=== PATIENT | male | born 1945 | race African-American/Black ===

== ENCOUNTER 2021-08-24 18:11 | Emergency (ER) | payer OTHER ==
[~2021-08-24] VITALS: Ht 193 cm; Wt 60.8 kg
[2021-08-24 18:33] VITALS: BP 107/67
--- NOTE | 2021-08-24 19:21 | NUR ---
CALLED [facility]ALEAN[facility] ETA [phone]
--- NOTE | 2021-08-24 20:28 | NUR ---
REPORT GIVEN TO EMS AT BEDSIDE
== END 2021-08-24 20:42 ==
LOC: ER 18:13
DX: R40.0 Somnolence (principal); I10 Essential (primary) hypertension; E78.00 Pure hypercholesterolemia, unspecified

== ENCOUNTER 2023-10-30 10:50 | Inpatient (IN) | payer OTHER ==
[~2023-10-30] VITALS: Ht 167.6 cm; Wt 72.6 kg
[2023-10-30] MEDS ORDERED: IV LR 1000 ML 1,000 ML BAG IV ONE (11:30)
[2023-10-30 11:54] LABS: BASOPHILS % (AUTO) 0.2 % (0.0-2.0); EOSINOPHILS % (AUTO) 0.5 % (0.0-6.0); HEMATOCRIT 41 % (39-51); HEMOGLOBIN 13.5 g/dL (13.5-17.5); LYMPHOCYTES # (AUTO) 1.1 K/uL (0.8-4.8); LYMPHOCYTES % (AUTO) 22.5 % (20.0-44.0); MEAN CORPUSCULAR HEMOGLOBIN 30 PG (26.0-33.0); MEAN CORPUSCULAR HGB CONC 33 g/dl (31.0-36.0); MEAN CORPUSCULAR VOLUME 92 fL (80-96); MONOCYTES # (AUTO) 0.5 K/uL (0.1-1.30); MONOCYTES % (AUTO) 9.1 % (2.0-12.0); NEUTROPHILS # (AUTO) 3.5 K/uL (1.8-8.9); NEUTROPHILS % (AUTO) 67.7 % (43.0-81.0); PLATELET COUNT (AUTO) 160 K/uL (150-450); RED CELL DISTRIBUTION WIDTH 14.8 % (11.5-15.0); WHITE BLOOD COUNT (AUTO) 5.1 K/uL (4.3-11.0)
[2023-10-30 12:03] LABS: ALANINE AMINOTRANSFERASE 55 U/L (12-78); ALBUMIN 3.2 g/dL (3.4-5.0); ALKALINE PHOSPHATASE 95 U/L (46-116); ASPARTATE AMINOTRANSFERASE 149 U/L (15-37); BILIRUBIN,DIRECT 0.1 mg/dL (0.0-0.2); BILIRUBIN,TOTAL 0.6 mg/dL (0.2-1.0); CALCIUM, SERUM 9.1 mg/dL (8.5-10.1); CARBON DIOXIDE 24 mmol/L (21-32); CHLORIDE 102 mmol/L (98-107); CREATININE 1.6 mg/dL (0.6-1.3); GLUCOSE 137 mg/dL (74-106); POTASSIUM 5.2 mmol/L (3.5-5.1); SODIUM SERUM 134 mmol/L (136-145); TOTAL PROTEIN, SERUM 8.1 g/dL (6.4-8.2); UREA NITROGEN, BLOOD 31 mg/dL (7-18)
[2023-10-30 12:09] LABS: LACTIC ACID 2.6 mmol/L (0.4-2.0)
[2023-10-30] MEDS ORDERED: CEFTRIAXONE 1GM BAG (ER ONLY) 1 GM/50 ML PIGGYBACK IV ONE (12:30)
[2023-10-30] MEDS ORDERED: ASPIRIN 325 MG TABLET PO ONE (12:30)
[2023-10-30] MEDS ORDERED: CEFTRIAXONE 1GM BAG (ER ONLY) 50 ML IV ONE (12:44)
[2023-10-30] MEDS ORDERED: ASPIRIN 325 MG TABLET ONE (12:44)
[2023-10-30] MEDS ORDERED: BISA10SU11 RC (12:47)
[2023-10-30] MEDS ORDERED: AMLO5TAB4 PO (12:47)
[2023-10-30] MEDS ORDERED: CALC-168 PO (12:47)
[2023-10-30] MEDS ORDERED: ALEN70TA80 PO (12:47)
[2023-10-30] MEDS ORDERED: MULT-213 PO (12:47)
[2023-10-30] MEDS ORDERED: MAGN400O6 PO (12:47)
[2023-10-30] MEDS ORDERED: ATOR40TA PO (12:47)
[2023-10-30] MEDS ORDERED: ACET-868 PO (12:47)
[2023-10-30] MEDS ORDERED: CHOL100043 PO (12:47)
[2023-10-30] MEDS ORDERED: ASCO-340 PO (12:47)
[2023-10-30] MEDS ORDERED: ACET-2605 PO (12:47)
[2023-10-30] MEDS ORDERED: GABA-532 PO (12:47)
[2023-10-30] MEDS ORDERED: FERR325T24 PO (12:47)
[2023-10-30] MEDS ORDERED: TRAM50TA2 PO (12:47)
[2023-10-30] MEDS ORDERED: LISI-768 PO (12:47)
[2023-10-30] MEDS ORDERED: NA P133E RC (12:47)
[2023-10-30 13:00] VITALS: O2SAT 93
[2023-10-30] MEDS ORDERED: MAGNESIUM HYDROXIDE 30 ML UDC PO PRN (16:00)
[2023-10-30] MEDS ORDERED: MAG HYDROX/AL HYDROX/SIMETH 30 ML UDC PO PRN (16:00)
[2023-10-30] MEDS ORDERED: ONDANSETRON HCL/PF 4 MG/2 ML VIAL IVP PRN (16:00)
[2023-10-30] MEDS ORDERED: Z GUARD REMEDY 4 OZ OINT TP PRN (16:00)
[2023-10-30] MEDS ORDERED: ACETAMINOPHEN 325 MG TABLET PO PRN (16:00)
[2023-10-30] MEDS ORDERED: BISACODYL SUPP (10 MG) 10 MG/SUPP.RECT SUPP.RECT RC PRN (16:00)
[2023-10-30] MEDS ORDERED: NA PHOS,M-B/NA PHOS,DI-BA 1 EA ENEMA RC PRN (16:00)
[2023-10-30] MEDS ORDERED: HYDROCODONE/APAP 5/325MG TABLET PO PRN (16:00)
[2023-10-30 16:03] LABS: APPEARANCE,URINE SLIGHTLY CLOUDY (CLEAR); BILIRUBIN,URINE NEGATIVE (NEGATIVE); BLOOD, URINE NEGATIVE Ery/uL (NEGATIVE); COLOR,URINE YELLOW (YELLOW); KETONES,URINE TRACE mg/dL (NEGATIVE); LEUKOCYTE ESTERASE ,URINE 1+ (NEGATIVE); NITRITE, URINE POSITIVE (NEGATIVE); PH,URINE 7.5 (5.0-8.0); PROTEIN,URINE 1+ mg/dl (NEGATIVE); UGLUCOSE NEGATIVE (NEGATIVE)
[2023-10-30 16:49] LABS: ADD URINE CULTURE YES; BACTERIA,URINE 1+ /HPF (None Seen); RBC,URINE 0-2 /HPF (0-2)
[2023-10-30 16:50] LABS: TRIPLE PHOSPHATE CRYSTAL,UR Moderate /HPF (None Seen); URINE AMORPHOUS PHOSPHATES Moderate /HPF (None Seen)
[2023-10-30] MEDS: GABAPENTIN 100 MG CAPSULE PO SCH (17:00)
[2023-10-30] MEDS: ENOXAPARIN SODIUM 40 MG/0.4 ML DISP.SYRIN SQ SCH (20:30)
[2023-10-30] MEDS ORDERED: ENOXAPARIN SODIUM 40 MG/0.4 ML DISP.SYRIN SQ ONE (20:33)
[2023-10-30] MEDS ORDERED: GABAPENTIN 100 MG CAPSULE ONE (20:34)
[2023-10-30] MEDS: IV NS 0.9% 1,000 ML IV PRN (22:12)
[2023-10-30] MEDS: ATORVASTATIN 40 MG TABLET PO SCH (22:13)
[2023-10-31 01:21] VITALS: BP 99/72; TEMP 97.6; O2SAT 97
[2023-10-31 04:23] VITALS: BP 107/75; TEMP 97.3; O2SAT 98
[2023-10-31 06:32] LABS: BASOPHILS % (AUTO) 0.5 % (0.0-2.0); EOSINOPHILS # (AUTO) 0.1 K/uL (0.0-0.7); EOSINOPHILS % (AUTO) 2.3 % (0.0-6.0); HEMATOCRIT 36 % (39-51); HEMOGLOBIN 11.3 g/dL (13.5-17.5); LYMPHOCYTES # (AUTO) 1.8 K/uL (0.8-4.8); LYMPHOCYTES % (AUTO) 53.4 % (20.0-44.0); MEAN CORPUSCULAR HEMOGLOBIN 29 PG (26.0-33.0); MEAN CORPUSCULAR HGB CONC 31 g/dl (31.0-36.0); MEAN CORPUSCULAR VOLUME 93 fL (80-96); MONOCYTES # (AUTO) 0.4 K/uL (0.1-1.30); NEUTROPHILS # (AUTO) 1.1 K/uL (1.8-8.9); NEUTROPHILS % (AUTO) 30.8 % (43.0-81.0); PLATELET COUNT (AUTO) 117 K/uL (150-450); RED BLOOD CELL COUNT(AUTO) 3.87 MIL/uL (4.5-6.0); RED CELL DISTRIBUTION WIDTH 14.7 % (11.5-15.0); WHITE BLOOD COUNT (AUTO) 3.4 K/uL (4.3-11.0)
[2023-10-31 07:07] LABS: CALCIUM, SERUM 8.2 mg/dL (8.5-10.1); CREATININE 1.1 mg/dL (0.6-1.3); MAGNESIUM 2.5 mg/dL (1.8-2.4); PHOSPHORUS 3.2 mg/dL (2.5-4.9); POTASSIUM 3.8 mmol/L (3.5-5.1)
[2023-10-31 07:30] VITALS: BP 114/72; TEMP 98.1; O2SAT 100
[2023-10-31] MEDS: PANTOPRAZOLE 40 MG TABLET.DR PO SCH (08:19)
[2023-10-31] MEDS: GABAPENTIN 100 MG CAPSULE PO SCH ×3 (08:20→16:07)
[2023-10-31] MEDS: CALCIUM CARB 600MG /VIT D 1 EACH TABLET PO SCH (08:20)
[2023-10-31] MEDS: MULTIVIT W/MINERALS 1 TAB TABLET PO SCH (08:20)
[2023-10-31] MEDS: ASCORBIC ACID 500 MG TABLET PO SCH (08:20)
[2023-10-31] MEDS: FERROUS SULFATE (325 MG) 325 MG/TAB TABLET PO SCH (08:20)
[2023-10-31] MEDS: CHOLECALCIFEROL 1,000 UNIT TABLET (VIT D3) PO SCH (08:20)
[2023-10-31 08:28] LABS: ALBUMIN 2.6 g/dL (3.4-5.0); BILIRUBIN,TOTAL 0.3 mg/dL (0.2-1.0); CALCIUM, SERUM 8.2 mg/dL (8.5-10.1); CREATININE 1.1 mg/dL (0.6-1.3); MAGNESIUM 1.8 mg/dL (1.8-2.4); PHOSPHORUS 3.2 mg/dL (2.5-4.9); POTASSIUM 3.4 mmol/L (3.5-5.1); TOTAL PROTEIN, SERUM 6.3 g/dL (6.4-8.2)
[2023-10-31 08:43] LABS: THYROID STIMULATING HORMONE 0.731 uIU/mL (0.358-3.74)
[2023-10-31] MEDS ORDERED: POTASSIUM CHLORIDE 20 MEQ TAB.PRT.SR PO SCH (11:30)
[2023-10-31] MEDS: CEFTRIAXONE 1 G in IV D5W 50 ML IV SCH (12:05)
[2023-10-31] MEDS: IV NS 0.9% 1,000 ML IV PRN (12:05)
[2023-10-31 16:04] VITALS: BP 118/82; TEMP 97.9; O2SAT 93
[2023-10-31] MEDS: ENOXAPARIN SODIUM 40 MG/0.4 ML DISP.SYRIN SQ SCH (16:10)
[2023-10-31 19:00] VITALS: BP 128/79; TEMP 98.2; O2SAT 96
[2023-10-31] MEDS: ATORVASTATIN 40 MG TABLET PO SCH (21:38)
[2023-11-01] MEDS: IV NS 0.9% 1,000 ML IV PRN ×2 (01:28→15:13)
[2023-11-01 06:24] LABS: BASOPHILS % (AUTO) 0.6 % (0.0-2.0); EOSINOPHILS # (AUTO) 0.1 K/uL (0.0-0.7); EOSINOPHILS % (AUTO) 2.7 % (0.0-6.0); HEMATOCRIT 35 % (39-51); HEMOGLOBIN 11.6 g/dL (13.5-17.5); LYMPHOCYTES # (AUTO) 1.6 K/uL (0.8-4.8); LYMPHOCYTES % (AUTO) 40.8 % (20.0-44.0); MEAN CORPUSCULAR HEMOGLOBIN 30 PG (26.0-33.0); MEAN CORPUSCULAR HGB CONC 33 g/dl (31.0-36.0); MEAN CORPUSCULAR VOLUME 90 fL (80-96); MONOCYTES # (AUTO) 0.4 K/uL (0.1-1.30); MONOCYTES % (AUTO) 10.7 % (2.0-12.0); NEUTROPHILS # (AUTO) 1.8 K/uL (1.8-8.9); NEUTROPHILS % (AUTO) 45.2 % (43.0-81.0); PLATELET COUNT (AUTO) 144 K/uL (150-450); RED BLOOD CELL COUNT(AUTO) 3.92 MIL/uL (4.5-6.0); RED CELL DISTRIBUTION WIDTH 14.3 % (11.5-15.0); WHITE BLOOD COUNT (AUTO) 3.9 K/uL (4.3-11.0)
[2023-11-01 07:24] LABS: ALBUMIN 2.7 g/dL (3.4-5.0); BILIRUBIN,TOTAL 0.3 mg/dL (0.2-1.0); CALCIUM, SERUM 8.4 mg/dL (8.5-10.1); CREATININE 0.9 mg/dL (0.6-1.3); MAGNESIUM 1.8 mg/dL (1.8-2.4); POTASSIUM 3.5 mmol/L (3.5-5.1); TOTAL PROTEIN, SERUM 6.5 g/dL (6.4-8.2)
[2023-11-01 08:30] VITALS: BP 142/91; TEMP 98.4; O2SAT 96
[2023-11-01] MEDS: CALCIUM CARB 600MG /VIT D 1 EACH TABLET PO SCH (08:51)
[2023-11-01] MEDS: FERROUS SULFATE (325 MG) 325 MG/TAB TABLET PO SCH (08:51)
[2023-11-01] MEDS: ASCORBIC ACID 500 MG TABLET PO SCH (08:52)
[2023-11-01] MEDS: CHOLECALCIFEROL 1,000 UNIT TABLET (VIT D3) PO SCH (08:52)
[2023-11-01] MEDS: PANTOPRAZOLE 40 MG TABLET.DR PO SCH (08:52)
[2023-11-01] MEDS: GABAPENTIN 100 MG CAPSULE PO SCH ×3 (08:52→16:48)
[2023-11-01] MEDS: MULTIVIT W/MINERALS 1 TAB TABLET PO SCH (08:53)
[2023-11-01] MEDS: CEFTRIAXONE 1 G in IV D5W 50 ML IV SCH (12:00)
[2023-11-01 13:00] VITALS: BP 137/98; TEMP 98.6; O2SAT 98
[2023-11-01 16:00] VITALS: BP 115/73; TEMP 98.2; O2SAT 98
[2023-11-01] MEDS: ENOXAPARIN SODIUM 40 MG/0.4 ML DISP.SYRIN SQ SCH (16:50)
[2023-11-01 20:00] VITALS: BP 147/98; TEMP 98.1; O2SAT 97
[2023-11-01] MEDS: ATORVASTATIN 40 MG TABLET PO SCH (22:38)
[2023-11-02 08:00] VITALS: BP 138/89; TEMP 97.9; O2SAT 97
[2023-11-02] MEDS: CALCIUM CARB 600MG /VIT D 1 EACH TABLET PO SCH (08:44)
[2023-11-02] MEDS: MULTIVIT W/MINERALS 1 TAB TABLET PO SCH (08:44)
[2023-11-02] MEDS: FERROUS SULFATE (325 MG) 325 MG/TAB TABLET PO SCH (08:44)
[2023-11-02] MEDS: CHOLECALCIFEROL 1,000 UNIT TABLET (VIT D3) PO SCH (08:44)
[2023-11-02] MEDS: GABAPENTIN 100 MG CAPSULE PO SCH ×3 (08:44→17:12)
[2023-11-02] MEDS: ASCORBIC ACID 500 MG TABLET PO SCH (08:44)
[2023-11-02] MEDS: PANTOPRAZOLE 40 MG TABLET.DR PO SCH (08:46)
[2023-11-02] MEDS: METOPROLOL TARTRATE 50 MG TABLET PO SCH ×2 (10:02→21:23)
[2023-11-02] MEDS: ASPIRIN 81 MG TAB.CHEW PO SCH (10:02)
[2023-11-02] MEDS: CEFTRIAXONE 1 G in IV D5W 50 ML IV SCH (11:39)
[2023-11-02] MEDS: ENOXAPARIN SODIUM 40 MG/0.4 ML DISP.SYRIN SQ SCH (15:41)
[2023-11-02 16:00] VITALS: BP 130/83; TEMP 97.3; O2SAT 97
[2023-11-02] MEDS: IV NS 0.9% 1,000 ML IV PRN (17:12)
[2023-11-02 20:00] VITALS: BP 131/82; TEMP 98.5; O2SAT 97
[2023-11-02] MEDS: ATORVASTATIN 40 MG TABLET PO SCH (21:22)
[2023-11-03] MEDS: IV NS 0.9% 1,000 ML IV PRN ×2 (06:34→23:50)
[2023-11-03 07:00] VITALS: BP 140/91; TEMP 98.5; O2SAT 96
[2023-11-03 07:37] LABS: BASOPHILS % (AUTO) 0.6 % (0.0-2.0); EOSINOPHILS # (AUTO) 0.2 K/uL (0.0-0.7); HEMATOCRIT 37 % (39-51); HEMOGLOBIN 12.5 g/dL (13.5-17.5); LYMPHOCYTES % (AUTO) 41.5 % (20.0-44.0); MEAN CORPUSCULAR HEMOGLOBIN 30 PG (26.0-33.0); MEAN CORPUSCULAR HGB CONC 34 g/dl (31.0-36.0); MEAN CORPUSCULAR VOLUME 89 fL (80-96); MONOCYTES # (AUTO) 0.5 K/uL (0.1-1.30); MONOCYTES % (AUTO) 10.6 % (2.0-12.0); NEUTROPHILS % (AUTO) 42.3 % (43.0-81.0); PLATELET COUNT (AUTO) 159 K/uL (150-450); RED BLOOD CELL COUNT(AUTO) 4.18 MIL/uL (4.5-6.0); RED CELL DISTRIBUTION WIDTH 14.2 % (11.5-15.0); WHITE BLOOD COUNT (AUTO) 4.7 K/uL (4.3-11.0)
[2023-11-03 07:50] LABS: ALBUMIN 2.6 g/dL (3.4-5.0); BILIRUBIN,TOTAL 0.3 mg/dL (0.2-1.0); CALCIUM, SERUM 8.7 mg/dL (8.5-10.1); CREATININE 0.9 mg/dL (0.6-1.3); MAGNESIUM 2.1 mg/dL (1.8-2.4); PHOSPHORUS 3.5 mg/dL (2.5-4.9); POTASSIUM 3.9 mmol/L (3.5-5.1); TOTAL PROTEIN, SERUM 6.8 g/dL (6.4-8.2)
[2023-11-03] MEDS: MULTIVIT W/MINERALS 1 TAB TABLET PO SCH (09:00)
[2023-11-03] MEDS: ASPIRIN 81 MG TAB.CHEW PO SCH (11:25)
[2023-11-03] MEDS: CALCIUM CARB 600MG /VIT D 1 EACH TABLET PO SCH (11:26)
[2023-11-03] MEDS: PANTOPRAZOLE 40 MG TABLET.DR PO SCH (11:26)
[2023-11-03] MEDS: CHOLECALCIFEROL 1,000 UNIT TABLET (VIT D3) PO SCH (11:26)
[2023-11-03] MEDS: GABAPENTIN 100 MG CAPSULE PO SCH ×3 (11:26→17:50)
[2023-11-03] MEDS: FERROUS SULFATE (325 MG) 325 MG/TAB TABLET PO SCH (11:27)
[2023-11-03] MEDS: ASCORBIC ACID 500 MG TABLET PO SCH (11:27)
[2023-11-03] MEDS: METOPROLOL TARTRATE 50 MG TABLET PO SCH ×2 (11:27→21:11)
[2023-11-03] MEDS: CEFTRIAXONE 1 G in IV D5W 50 ML IV SCH (12:48)
[2023-11-03 16:00] VITALS: BP 147/69; TEMP 98.4; O2SAT 96
[2023-11-03] MEDS: ENOXAPARIN SODIUM 40 MG/0.4 ML DISP.SYRIN SQ SCH (16:41)
[2023-11-03 20:00] VITALS: BP 90/55; TEMP 98.9; O2SAT 96
[2023-11-03] MEDS: ATORVASTATIN 40 MG TABLET PO SCH (21:11)
[2023-11-04 06:34] LABS: BASOPHILS % (AUTO) 0.4 % (0.0-2.0); EOSINOPHILS # (AUTO) 0.2 K/uL (0.0-0.7); EOSINOPHILS % (AUTO) 4.2 % (0.0-6.0); HEMATOCRIT 36 % (39-51); HEMOGLOBIN 11.7 g/dL (13.5-17.5); LYMPHOCYTES # (AUTO) 2.1 K/uL (0.8-4.8); LYMPHOCYTES % (AUTO) 37.8 % (20.0-44.0); MEAN CORPUSCULAR HEMOGLOBIN 29 PG (26.0-33.0); MEAN CORPUSCULAR HGB CONC 33 g/dl (31.0-36.0); MEAN CORPUSCULAR VOLUME 89 fL (80-96); MONOCYTES # (AUTO) 0.6 K/uL (0.1-1.30); MONOCYTES % (AUTO) 10.6 % (2.0-12.0); NEUTROPHILS # (AUTO) 2.6 K/uL (1.8-8.9); PLATELET COUNT (AUTO) 180 K/uL (150-450); RED BLOOD CELL COUNT(AUTO) 4.01 MIL/uL (4.5-6.0); RED CELL DISTRIBUTION WIDTH 13.8 % (11.5-15.0); WHITE BLOOD COUNT (AUTO) 5.6 K/uL (4.3-11.0)
[2023-11-04 06:55] LABS: ALBUMIN 2.5 g/dL (3.4-5.0); BILIRUBIN,TOTAL 0.4 mg/dL (0.2-1.0); CALCIUM, SERUM 8.5 mg/dL (8.5-10.1); MAGNESIUM 1.9 mg/dL (1.8-2.4); POTASSIUM 3.8 mmol/L (3.5-5.1); TOTAL PROTEIN, SERUM 6.4 g/dL (6.4-8.2)
[2023-11-04 08:00] VITALS: BP 145/92; TEMP 98.2; O2SAT 97
[2023-11-04] MEDS: ASCORBIC ACID 500 MG TABLET PO SCH (09:52)
[2023-11-04] MEDS: GABAPENTIN 100 MG CAPSULE PO SCH ×3 (09:52→16:12)
[2023-11-04] MEDS: FERROUS SULFATE (325 MG) 325 MG/TAB TABLET PO SCH (09:52)
[2023-11-04] MEDS: CHOLECALCIFEROL 1,000 UNIT TABLET (VIT D3) PO SCH (09:52)
[2023-11-04] MEDS: ASPIRIN 81 MG TAB.CHEW PO SCH (09:52)
[2023-11-04] MEDS: CALCIUM CARB 600MG /VIT D 1 EACH TABLET PO SCH (09:52)
[2023-11-04] MEDS: METOPROLOL TARTRATE 50 MG TABLET PO SCH (09:54)
[2023-11-04] MEDS: PANTOPRAZOLE 40 MG TABLET.DR PO SCH (09:57)
[2023-11-04] MEDS: MULTIVIT W/MINERALS 1 TAB TABLET PO SCH (13:41)
[2023-11-04] MEDS: CEFTRIAXONE 1 G in IV D5W 50 ML IV SCH (13:47)
[2023-11-04 16:00] VITALS: BP 119/83; TEMP 98.2; O2SAT 100
[2023-11-04] MEDS: ENOXAPARIN SODIUM 40 MG/0.4 ML DISP.SYRIN SQ SCH (16:10)
== END 2023-11-04 17:20 | DRG 871 ==
LOC: ER 11:14 → TRANSITION 17:42 → TELE 20:33 → MED 11-01 17:04
PROVIDERS: ATTEND Nurse Practitioner Acute Care
DX: A41.9 Sepsis, unspecified organism (principal); I21.A1 Myocardial infarction type 2; N17.0 Acute kidney failure with tubular necrosis; N39.0 Urinary tract infection, site not specified; D61.818 Other pancytopenia; M81.0 Age-related osteoporosis without current pathological fracture; Z20.822 Contact with and (suspected) exposure to COVID-19; E78.00 Pure hypercholesterolemia, unspecified; I10 Essential (primary) hypertension; Z79.83 Long term (current) use of bisphosphonates; Z79.899 Other long term (current) drug therapy; K59.00 Constipation, unspecified; M89.8X9 Other specified disorders of bone, unspecified site; F03.90 Unspecified dementia, unspecified severity, without behavioral disturbance, psychotic disturbance, mood disturbance, and anxiety; E86.9 Volume depletion, unspecified; E87.6 Hypokalemia; D64.9 Anemia, unspecified
CPT/HCPCS: 36415; 71045-TC; 80048-TC; 80053-TC; 80061-TC; 80076-TC; 81001; 82728-TC; 83540-TC; 83605-TC; 83735-TC; 84100-TC; 84300-TC; 84439-TC; 84443-TC; 84484-TC; 85025-TC; 87040-TC; 87081-TC; 87086-TC; 92526; 92611-TC; 93307-TC; 97110-TC; 97112-TC; 97530-TC; A4223; C9803; G0378; J0696; J1650; J7030; J7060; J7120

== ENCOUNTER 2023-12-05 18:16 | Inpatient (IN) | payer OTHER ==
[~2023-12-05] VITALS: Ht 172.7 cm; Wt 76.2 kg
[~2023-12-05 18:16] MED LIST: ACET-2605 PO; ACET-868 PO; ALEN70TA80 PO; AMLO5TAB4 PO; ASCO-340 PO; ATOR40TA PO; BISA10SU11 RC; CALC-168 PO; CHOL100043 PO; FERR325T24 PO; GABA-532 PO; LISI-768 PO; MAGN400O6 PO; MULT-213 PO; NA P133E RC; TRAM50TA2 PO
[2023-12-05] MEDS ORDERED: CEFT1VIA14 IV (19:00)
[2023-12-05] MEDS ORDERED: CALC1TAB30 PO (19:00)
[2023-12-05] MEDS ORDERED: AMIN30LI2 PO (19:00)
[2023-12-05] MEDS ORDERED: ASPI-1169 PO (19:00)
[2023-12-05] MEDS ORDERED: LIDO120C10 TP (19:00)
[2023-12-05 19:09] LABS: BASOPHILS % (AUTO) 0.2 % (0.0-2.0); EOSINOPHILS % (AUTO) 0.1 % (0.0-6.0); HEMATOCRIT 32 % (39-51); HEMOGLOBIN 10.6 g/dL (13.5-17.5); LYMPHOCYTES # (AUTO) 0.5 K/uL (0.8-4.8); LYMPHOCYTES % (AUTO) 3.6 % (20.0-44.0); MEAN CORPUSCULAR HEMOGLOBIN 30 PG (26.0-33.0); MEAN CORPUSCULAR HGB CONC 33 g/dl (31.0-36.0); MEAN CORPUSCULAR VOLUME 90 fL (80-96); MONOCYTES # (AUTO) 0.8 K/uL (0.1-1.30); MONOCYTES % (AUTO) 5.5 % (2.0-12.0); NEUTROPHILS % (AUTO) 90.6 % (43.0-81.0); PLATELET COUNT (AUTO) 233 K/uL (150-450); RED CELL DISTRIBUTION WIDTH 14.9 % (11.5-15.0); WHITE BLOOD COUNT (AUTO) 14.4 K/uL (4.3-11.0)
[2023-12-05] MEDS ORDERED: VANCOMYCIN 1 GM in IV D5W 250 ML IV ONE (20:00)
[2023-12-05] MEDS ORDERED: PIPERACILLIN /TAZOBACTAM 3.375 G in IV D5W 50 ML IV ONE (20:00)
[2023-12-05] MEDS ORDERED: AZITHROMYCIN 500 MG in IV D5W 250 ML IV ONE (20:00)
[2023-12-05 20:01] LABS: CALCIUM, SERUM 8.5 mg/dL (8.5-10.1); CARBON DIOXIDE 22 mmol/L (21-32); CHLORIDE 105 mmol/L (98-107); CREATININE 1.4 mg/dL (0.6-1.3); GLUCOSE 124 mg/dL (74-106); POTASSIUM 3.6 mmol/L (3.5-5.1); SODIUM SERUM 140 mmol/L (136-145); UREA NITROGEN, BLOOD 18 mg/dL (7-18)
[2023-12-05] MEDS ORDERED: PIPERACI/TAZO 3.375GM/D5W 50ML PB IV ONE (20:17)
[2023-12-05 20:25] LABS: ALANINE AMINOTRANSFERASE 23 U/L (12-78); ALBUMIN 2.8 g/dL (3.4-5.0); ALKALINE PHOSPHATASE 94 U/L (46-116); ASPARTATE AMINOTRANSFERASE 29 U/L (15-37); BILIRUBIN,DIRECT 0.6 mg/dL (0.0-0.2); NT-PRO BNP 1528 pg/mL (0-125); TOTAL PROTEIN, SERUM 7.7 g/dL (6.4-8.2)
[2023-12-05] MEDS ORDERED: ASPIRIN 325 MG TABLET PO ONE (21:30)
[2023-12-05] MEDS ORDERED: ZOLPIDEM TARTRATE 5 MG TABLET PO PRN (22:30)
[2023-12-05] MEDS ORDERED: ONDANSETRON HCL/PF 4 MG/2 ML VIAL IVP PRN (22:30)
[2023-12-05] MEDS ORDERED: ALENDRONATE 70 MG TABLET PO SCH (22:30)
[2023-12-05] MEDS ORDERED: MAG HYDROX/AL HYDROX/SIMETH 30 ML UDC PO PRN (22:30)
[2023-12-05] MEDS ORDERED: MAGNESIUM HYDROXIDE 30 ML UDC PO PRN (22:30)
[2023-12-05] MEDS ORDERED: Z GUARD REMEDY 4 OZ OINT TP PRN (22:30)
[2023-12-05] MEDS ORDERED: ACETAMINOPHEN 325 MG TABLET PO PRN (22:30)
[2023-12-05 23:25] VITALS: BP 93/72; TEMP 98.1; O2SAT 96
[2023-12-05 23:40] VITALS: BP 93/72; TEMP 98.1; O2SAT 96
[2023-12-05] MEDS: IV NS 0.9% 1,000 ML IV PRN (23:48)
[2023-12-06] MEDS ORDERED: PIPERACILLIN /TAZOBACTAM 3.375 G in IV D5W 50 ML IV SCH ×2
[2023-12-06] MEDS ORDERED: PIPERACI/TAZO 3.375GM/D5W 50ML PB IV ONE ×2 (00:22→03:36)
[2023-12-06] MEDS: PIPERACILLIN /TAZOBACTAM 3.375 G in IV D5W 50 ML IV SCH ×2 (00:27→06:46)
[2023-12-06 04:00] VITALS: BP 111/77; TEMP 97.3; O2SAT 98
[2023-12-06 08:00] VITALS: BP 152/76; TEMP 97.9; O2SAT 96
[2023-12-06] MEDS: MULTIVIT W/MINERALS 1 TAB TABLET PO SCH (09:22)
[2023-12-06] MEDS: CALCIUM CARB 250MG /VITAMIN D 1 UDTAB PO SCH (09:22)
[2023-12-06] MEDS: ASCORBIC ACID 500 MG TABLET PO SCH (09:22)
[2023-12-06] MEDS: LISINOPRIL (5MG) 5 MG TABLET PO SCH (09:23)
[2023-12-06] MEDS: GABAPENTIN 100 MG CAPSULE PO SCH ×3 (09:23→16:16)
[2023-12-06] MEDS: AMLODIPINE BESYLATE 5 MG TABLET PO SCH (09:23)
[2023-12-06] MEDS: ASPIRIN 81 MG TAB.CHEW PO SCH (09:23)
[2023-12-06] MEDS: CHOLECALCIFEROL 1,000 UNIT TABLET (VIT D3) PO SCH (09:26)
[2023-12-06] MEDS: FERROUS SULFATE (325 MG) 325 MG/TAB TABLET PO SCH (09:26)
[2023-12-06] MEDS: PROSOURCE / PROSTAT (PYXIS) 30 ML UDC PO SCH ×2 (09:27→16:16)
[2023-12-06 12:00] VITALS: BP 127/94; TEMP 97.6; O2SAT 97
[2023-12-06] MEDS: PIPERACILLIN /TAZOBACTAM 3.375 G in IV D5W 100 ML IV SCH ×2 (13:35→22:22)
[2023-12-06 16:00] VITALS: BP 115/76; TEMP 98.8; O2SAT 97
[2023-12-06] MEDS: IV NS 0.9% 1,000 ML IV PRN (18:00)
[2023-12-06 20:00] VITALS: BP 122/79; TEMP 97.7; O2SAT 97
[2023-12-06] MEDS: VANCOMYCIN 1 GM in IV D5W 250 ML IV SCH (21:45)
[2023-12-06] MEDS: ATORVASTATIN 40 MG TABLET PO SCH (22:26)
[2023-12-07] VITALS: BP 127/89; TEMP 97.8; O2SAT 97
[2023-12-07 04:00] VITALS: BP 129/84; TEMP 97.9; O2SAT 94
[2023-12-07 05:00] VITALS: BP 129/84; TEMP 97.9; O2SAT 97
[2023-12-07] MEDS: PIPERACILLIN /TAZOBACTAM 3.375 G in IV D5W 100 ML IV SCH ×3 (05:03→21:49)
[2023-12-07 08:17] VITALS: BP 135/87; TEMP 98.2; O2SAT 97
[2023-12-07] MEDS: ASPIRIN 81 MG TAB.CHEW PO SCH (08:24)
[2023-12-07] MEDS: CHOLECALCIFEROL 1,000 UNIT TABLET (VIT D3) PO SCH (08:24)
[2023-12-07] MEDS: AMLODIPINE BESYLATE 5 MG TABLET PO SCH (08:25)
[2023-12-07] MEDS: LISINOPRIL (5MG) 5 MG TABLET PO SCH (08:25)
[2023-12-07] MEDS: MULTIVIT W/MINERALS 1 TAB TABLET PO SCH (08:25)
[2023-12-07] MEDS: GABAPENTIN 100 MG CAPSULE PO SCH ×3 (08:25→16:44)
[2023-12-07] MEDS: FERROUS SULFATE (325 MG) 325 MG/TAB TABLET PO SCH (08:25)
[2023-12-07] MEDS: ASCORBIC ACID 500 MG TABLET PO SCH (08:25)
[2023-12-07] MEDS: CALCIUM CARB 250MG /VITAMIN D 1 UDTAB PO SCH (08:25)
[2023-12-07] MEDS: PROSOURCE / PROSTAT (PYXIS) 30 ML UDC PO SCH ×2 (08:26→16:42)
[2023-12-07 16:36] VITALS: BP 108/74; TEMP 97.5; O2SAT 98
[2023-12-07 20:00] VITALS: BP 133/85; TEMP 98.1; O2SAT 98
[2023-12-07] MEDS: VANCOMYCIN 1 GM in IV D5W 250 ML IV SCH (20:16)
[2023-12-07] MEDS: ATORVASTATIN 40 MG TABLET PO SCH (21:11)
[2023-12-07] MEDS: IV NS 0.9% 1,000 ML IV PRN (21:48)
[2023-12-08] VITALS: BP 123/81; TEMP 99; O2SAT 97
[2023-12-08 04:00] VITALS: BP 118/76; TEMP 97.4; O2SAT 97
[2023-12-08 05:00] VITALS: BP 118/76; TEMP 97.4; O2SAT 97
[2023-12-08] MEDS: PIPERACILLIN /TAZOBACTAM 3.375 G in IV D5W 100 ML IV SCH ×2 (05:10→14:06)
[2023-12-08 06:58] LABS: BASOPHILS % (AUTO) 0.5 % (0.0-2.0); EOSINOPHILS # (AUTO) 0.2 K/uL (0.0-0.7); EOSINOPHILS % (AUTO) 3.6 % (0.0-6.0); HEMATOCRIT 29 % (39-51); HEMOGLOBIN 9.8 g/dL (13.5-17.5); LYMPHOCYTES # (AUTO) 1.3 K/uL (0.8-4.8); MEAN CORPUSCULAR HEMOGLOBIN 30 PG (26.0-33.0); MEAN CORPUSCULAR HGB CONC 33 g/dl (31.0-36.0); MEAN CORPUSCULAR VOLUME 89 fL (80-96); MONOCYTES # (AUTO) 0.8 K/uL (0.1-1.30); MONOCYTES % (AUTO) 12.7 % (2.0-12.0); NEUTROPHILS # (AUTO) 4.1 K/uL (1.8-8.9); NEUTROPHILS % (AUTO) 63.2 % (43.0-81.0); PLATELET COUNT (AUTO) 235 K/uL (150-450); RED BLOOD CELL COUNT(AUTO) 3.31 MIL/uL (4.5-6.0); RED CELL DISTRIBUTION WIDTH 14.8 % (11.5-15.0); WHITE BLOOD COUNT (AUTO) 6.4 K/uL (4.3-11.0)
[2023-12-08 07:30] VITALS: BP 128/83; TEMP 97.7; O2SAT 98
[2023-12-08 07:42] LABS: CALCIUM, SERUM 8.2 mg/dL (8.5-10.1); CARBON DIOXIDE 24 mmol/L (21-32); CHLORIDE 108 mmol/L (98-107); CREATININE 1.4 mg/dL (0.6-1.3); GLUCOSE 123 mg/dL (74-106); PHOSPHORUS 2.5 mg/dL (2.5-4.9); POTASSIUM 3.2 mmol/L (3.5-5.1); SODIUM SERUM 139 mmol/L (136-145); UREA NITROGEN, BLOOD 13 mg/dL (7-18)
[2023-12-08] MEDS: LISINOPRIL (5MG) 5 MG TABLET PO SCH (09:00)
[2023-12-08] MEDS: ASPIRIN 81 MG TAB.CHEW PO SCH (09:04)
[2023-12-08] MEDS: CALCIUM CARB 250MG /VITAMIN D 1 UDTAB PO SCH (09:04)
[2023-12-08] MEDS: MULTIVIT W/MINERALS 1 TAB TABLET PO SCH (09:05)
[2023-12-08] MEDS: CHOLECALCIFEROL 1,000 UNIT TABLET (VIT D3) PO SCH (09:05)
[2023-12-08] MEDS: ASCORBIC ACID 500 MG TABLET PO SCH (09:05)
[2023-12-08] MEDS: FERROUS SULFATE (325 MG) 325 MG/TAB TABLET PO SCH (09:05)
[2023-12-08] MEDS: GABAPENTIN 100 MG CAPSULE PO SCH ×3 (09:05→17:27)
[2023-12-08] MEDS: PROSOURCE / PROSTAT (PYXIS) 30 ML UDC PO SCH ×2 (09:06→17:27)
[2023-12-08] MEDS: AMLODIPINE BESYLATE 5 MG TABLET PO SCH (09:06)
[2023-12-08 09:35] LABS: APPEARANCE,URINE CLEAR (CLEAR); BILIRUBIN,URINE NEGATIVE (NEGATIVE); BLOOD, URINE NEGATIVE Ery/uL (NEGATIVE); COLOR,URINE YELLOW (YELLOW); KETONES,URINE NEGATIVE (NEGATIVE); LEUKOCYTE ESTERASE ,URINE NEGATIVE (NEGATIVE); NITRITE, URINE NEGATIVE (NEGATIVE); PROTEIN,URINE TRACE mg/dl (NEGATIVE); UGLUCOSE NEGATIVE (NEGATIVE)
[2023-12-08] MEDS: POTASSIUM CHLORIDE 20 MEQ TAB.PRT.SR PO SCH ×2 (09:55→11:45)
[2023-12-08 10:01] LABS: ADD URINE CULTURE YES; BACTERIA,URINE Few /HPF (None Seen); SQUAMOUS EPITHELIAL CELL,UR Few /HPF (None Seen)
[2023-12-08 16:00] VITALS: BP 128/83; TEMP 98.4; O2SAT 98
[2023-12-08] MEDS ORDERED: ALEN70TA3 PO (16:54)
[2023-12-08] MEDS ORDERED: AMOX-427 PO (16:54)
[2023-12-12] MEDS ORDERED: ALENDRONATE 70 MG TABLET PO SCH (06:00)
== END 2023-12-08 20:00 | DRG 682 ==
LOC: ER 18:40 → TELE 23:05
PROVIDERS: ADMIT Nurse Practitioner Acute Care; ATTEND Student in an Organized Health Care Education/Training Program
DX: N17.0 Acute kidney failure with tubular necrosis (principal); G93.41 Metabolic encephalopathy; I21.A1 Myocardial infarction type 2; J96.01 Acute respiratory failure with hypoxia; N39.0 Urinary tract infection, site not specified; E44.0 Moderate protein-calorie malnutrition; Z20.822 Contact with and (suspected) exposure to COVID-19; I10 Essential (primary) hypertension; E78.5 Hyperlipidemia, unspecified; K59.00 Constipation, unspecified; F43.10 Post-traumatic stress disorder, unspecified; Z79.82 Long term (current) use of aspirin; Z79.83 Long term (current) use of bisphosphonates; Z79.899 Other long term (current) drug therapy; Z86.19 Personal history of other infectious and parasitic diseases; F03.90 Unspecified dementia, unspecified severity, without behavioral disturbance, psychotic disturbance, mood disturbance, and anxiety; F29 Unspecified psychosis not due to a substance or known physiological condition; M81.0 Age-related osteoporosis without current pathological fracture; B96.89 Other specified bacterial agents as the cause of diseases classified elsewhere; D63.8 Anemia in other chronic diseases classified elsewhere; E88.09 Other disorders of plasma-protein metabolism, not elsewhere classified
CPT/HCPCS: 36415; 71045-TC; 76770-TC; 80048-TC; 80076-TC; 81001; 83735-TC; 83880; 84100-TC; 84484-TC; 85025-TC; 87081-TC; 87086-TC; 93970-TC; A4223; A4349; G0378; J0456; J2543; J3370; J7030; J7060

== ENCOUNTER 2024-05-12 21:11 | Inpatient (IN) | payer OTHER ==
[~2024-05-12] VITALS: Ht 177.8 cm; Wt 67.1 kg
[~2024-05-12 21:11] MED LIST changes: +ALEN70TA3 PO; +AMIN30LI2 PO; +AMOX-427 PO; +ASPI-1169 PO; -CALC-168 PO; +CALC1TAB30 PO; +LIDO120C10 TP; -LISI-768 PO
[2024-05-12] MEDS: IV NS 0.9% 1,000 ML BAG IV ONE ×2 (22:23→23:00)
[2024-05-12] MEDS ORDERED: ACETAMINOPHEN 650 MG/SUPP.RECT RC ONE (22:24)
[2024-05-12 22:25] LABS: BASOPHILS % (AUTO) 0.3 % (0.0-2.0); EOSINOPHILS % (AUTO) 0.2 % (0.0-6.0); HEMATOCRIT 32 % (39-51); HEMOGLOBIN 9.5 g/dL (13.5-17.5); LYMPHOCYTES # (AUTO) 0.1 K/uL (0.8-4.8); LYMPHOCYTES % (AUTO) 1.8 % (20.0-44.0); MEAN CORPUSCULAR HEMOGLOBIN 25 PG (26.0-33.0); MEAN CORPUSCULAR HGB CONC 30 g/dl (31.0-36.0); MEAN CORPUSCULAR VOLUME 83 fL (80-96); MONOCYTES % (AUTO) 0.5 % (2.0-12.0); NEUTROPHILS # (AUTO) 6.7 K/uL (1.8-8.9); NEUTROPHILS % (AUTO) 97.2 % (43.0-81.0); PLATELET COUNT (AUTO) 205 K/uL (150-450); RED BLOOD CELL COUNT(AUTO) 3.79 MIL/uL (4.5-6.0); RED CELL DISTRIBUTION WIDTH 21.6 % (11.5-15.0); WHITE BLOOD COUNT (AUTO) 6.9 K/uL (4.3-11.0)
[2024-05-12] MEDS: ACETAMINOPHEN 650 MG/SUPP.RECT RC ONE (22:29)
[2024-05-12 22:38] LABS: INR 1.18 (0.91-1.10); PARTIAL THROMBOPLASTIN TIME 27.6 SEC (24.3-34.3); PROTHROMBIN TIME 12.4 SECS (9.2-11.1)
[2024-05-12 22:40] LABS: CARBON DIOXIDE 23 mmol/L (21-32); CHLORIDE 108 mmol/L (98-107); CREATININE 1.6 mg/dL (0.6-1.3); GLUCOSE 106 mg/dL (74-106); POTASSIUM 3.8 mmol/L (3.5-5.1); SODIUM SERUM 145 mmol/L (136-145); UREA NITROGEN, BLOOD 20 mg/dL (7-18)
[2024-05-12 22:45] LABS: LACTIC ACID 3.8 mmol/L (0.4-2.0)
[2024-05-12 22:47] LABS: ALANINE AMINOTRANSFERASE 18 U/L (12-78); ALBUMIN 3.1 g/dL (3.4-5.0); ALKALINE PHOSPHATASE 132 U/L (46-116); ASPARTATE AMINOTRANSFERASE 34 U/L (15-37); BILIRUBIN,DIRECT 0.3 mg/dL (0.0-0.2); BILIRUBIN,TOTAL 0.7 mg/dL (0.2-1.0)
[2024-05-12 23:09] LABS: APPEARANCE,URINE CLOUDY (CLEAR); BILIRUBIN,URINE NEGATIVE (NEGATIVE); BLOOD, URINE 3+ Ery/uL (NEGATIVE); COLOR,URINE YELLOW (YELLOW); KETONES,URINE NEGATIVE (NEGATIVE); LEUKOCYTE ESTERASE ,URINE TRACE (NEGATIVE); NITRITE, URINE NEGATIVE (NEGATIVE); PROTEIN,URINE 1+ mg/dl (NEGATIVE); UGLUCOSE NEGATIVE (NEGATIVE)
[2024-05-12] MEDS ORDERED: LORAZEPAM INJ 2 MG/ML VIAL ONE (23:34)
[2024-05-12 23:35] LABS: ADD URINE CULTURE YES; BACTERIA,URINE Few /HPF (None Seen); RBC,URINE 51-80 /HPF (0-2); SQUAMOUS EPITHELIAL CELL,UR Moderate /HPF (None Seen)
[2024-05-12] MEDS: LORAZEPAM INJ 2 MG/ML VIAL IV ONE (23:37)
[2024-05-12] MEDS ORDERED: CEFTRIAXONE 1GM BAG (ER ONLY) 50 ML IV ONE (23:41)
[2024-05-12] MEDS: CEFTRIAXONE 1GM BAG (ER ONLY) 1 GM/50 ML PIGGYBACK IV ONE (23:46)
[2024-05-13] MEDS ORDERED: MAG HYDROX/AL HYDROX/SIMETH 30 ML UDC PO PRN (02:00)
[2024-05-13] MEDS ORDERED: ONDANSETRON HCL/PF 4 MG/2 ML VIAL IVP PRN (02:00)
[2024-05-13] MEDS ORDERED: Z GUARD REMEDY 4 OZ OINT TP PRN (02:00)
[2024-05-13] MEDS ORDERED: MAGNESIUM HYDROXIDE 30 ML UDC PO PRN ×2 (02:00→02:30)
[2024-05-13] MEDS ORDERED: TRAMADOL HCL 50 MG TABLET PO PRN (02:30)
[2024-05-13] MEDS ORDERED: BISACODYL SUPP (10 MG) 10 MG/SUPP.RECT SUPP.RECT RC PRN (02:30)
[2024-05-13] MEDS: IV NS 0.9% 1,000 ML IV SCH (02:48)
[2024-05-13 04:00] VITALS: BP 137/75; TEMP 100; O2SAT 95
[2024-05-13] MEDS: ACETAMINOPHEN 325 MG TABLET PO PRN (04:06)
[2024-05-13] MEDS ORDERED: CALC-263 PO (07:58)
[2024-05-13] MEDS ORDERED: DOCU100C36 PO (07:58)
[2024-05-13] MEDS ORDERED: PANT40TA49 PO (07:58)
[2024-05-13] MEDS ORDERED: POLY17PO4 PO (07:58)
[2024-05-13] MEDS ORDERED: SENN8.6T19 PO (07:58)
[2024-05-13] MEDS ORDERED: ATOR80TA PO (07:58)
[2024-05-13] MEDS ORDERED: APIX5TAB PO (07:58)
[2024-05-13] MEDS ORDERED: AMIN30LI66 PO (07:58)
[2024-05-13 08:00] VITALS: BP 106/68; TEMP 96.5; O2SAT 100
[2024-05-13] MEDS: FERROUS SULFATE (325 MG) 325 MG/TAB TABLET PO SCH (08:41)
[2024-05-13] MEDS: CALCIUM CARB 600MG /VIT D 1 EACH TABLET PO SCH (08:41)
[2024-05-13] MEDS: MULTIVIT W/MINERALS 1 TAB TABLET PO SCH (08:41)
[2024-05-13] MEDS: CHOLECALCIFEROL 1,000 UNIT TABLET (VIT D3) PO SCH (08:41)
[2024-05-13] MEDS: ASCORBIC ACID 500 MG TABLET PO SCH (08:41)
[2024-05-13] MEDS: GABAPENTIN 100 MG CAPSULE PO SCH (08:42)
[2024-05-13] MEDS: ASPIRIN 81 MG TAB.CHEW PO SCH (08:42)
[2024-05-13] MEDS: PROSOURCE / PROSTAT (PYXIS) 30 ML UDC GT SCH (08:42)
[2024-05-13] MEDS: PANTOPRAZOLE 40 MG VIAL IV SCH (08:42)
[2024-05-13] MEDS: AMLODIPINE BESYLATE 5 MG TABLET PO SCH (08:42)
[2024-05-13 12:00] VITALS: BP 105/44; TEMP 97.7; O2SAT 100
[2024-05-13 16:00] VITALS: BP 116/82; TEMP 98.2; O2SAT 97
[2024-05-13] MEDS: IV NS 0.9% 1,000 ML IV PRN (19:15)
[2024-05-13 20:00] VITALS: BP 122/67; TEMP 98.4; O2SAT 97
[2024-05-13] MEDS: CEFTRIAXONE 1 G in IV D5W 50 ML IV SCH (21:06)
[2024-05-13] MEDS: ATORVASTATIN 40 MG TABLET PO SCH (21:43)
[2024-05-14] VITALS (8 sets, daily range): BP systolic 97–118; BP diastolic 60–81; TEMP 97.6–98.5; O2SAT 95–97
[2024-05-14 06:58] LABS: BASOPHILS # (AUTO) 0.1 K/uL (0.0-0.2); BASOPHILS % (AUTO) 0.4 % (0.0-2.0); EOSINOPHILS # (AUTO) 0.2 K/uL (0.0-0.7); EOSINOPHILS % (AUTO) 1.2 % (0.0-6.0); HEMATOCRIT 25 % (39-51); HEMOGLOBIN 7.5 g/dL (13.5-17.5); LYMPHOCYTES # (AUTO) 0.9 K/uL (0.8-4.8); LYMPHOCYTES % (AUTO) 4.8 % (20.0-44.0); MEAN CORPUSCULAR HEMOGLOBIN 25 PG (26.0-33.0); MEAN CORPUSCULAR HGB CONC 30 g/dl (31.0-36.0); MEAN CORPUSCULAR VOLUME 84 fL (80-96); MONOCYTES # (AUTO) 0.8 K/uL (0.1-1.30); MONOCYTES % (AUTO) 4.3 % (2.0-12.0); NEUTROPHILS % (AUTO) 89.3 % (43.0-81.0); PLATELET COUNT (AUTO) 119 K/uL (150-450); RED BLOOD CELL COUNT(AUTO) 2.99 MIL/uL (4.5-6.0); RED CELL DISTRIBUTION WIDTH 23.4 % (11.5-15.0)
[2024-05-14 07:20] LABS: CALCIUM, SERUM 8.5 mg/dL (8.5-10.1); MAGNESIUM 1.8 mg/dL (1.8-2.4); PHOSPHORUS 2.5 mg/dL (2.5-4.9); POTASSIUM 3.8 mmol/L (3.5-5.1)
[2024-05-14] MEDS: PANTOPRAZOLE 40 MG TABLET.DR PO SCH (08:50)
[2024-05-14] MEDS ORDERED: CEFEPIME 1 GM VIAL ONE (22:54)
[2024-05-14] MEDS: CEFEPIME 1 GM in IV D5W 50 ML IV SCH (23:16)
[2024-05-15] VITALS: BP 101/64; TEMP 98.3; O2SAT 99
[2024-05-15] MEDS ORDERED: CEFEPIME 1 GM VIAL ONE (02:24)
[2024-05-15 04:00] VITALS: BP 101/67; TEMP 98.5; O2SAT 100
[2024-05-15 07:17] LABS: BASOPHILS # (AUTO) 0.1 K/uL (0.0-0.2); BASOPHILS % (AUTO) 0.3 % (0.0-2.0); EOSINOPHILS # (AUTO) 0.3 K/uL (0.0-0.7); EOSINOPHILS % (AUTO) 1.6 % (0.0-6.0); HEMATOCRIT 25 % (39-51); HEMOGLOBIN 7.6 g/dL (13.5-17.5); LYMPHOCYTES # (AUTO) 1.2 K/uL (0.8-4.8); LYMPHOCYTES % (AUTO) 7.4 % (20.0-44.0); MEAN CORPUSCULAR HEMOGLOBIN 25 PG (26.0-33.0); MEAN CORPUSCULAR HGB CONC 30 g/dl (31.0-36.0); MEAN CORPUSCULAR VOLUME 83 fL (80-96); MONOCYTES % (AUTO) 6.4 % (2.0-12.0); NEUTROPHILS # (AUTO) 13.2 K/uL (1.8-8.9); NEUTROPHILS % (AUTO) 84.3 % (43.0-81.0); PLATELET COUNT (AUTO) 115 K/uL (150-450); RED BLOOD CELL COUNT(AUTO) 3.06 MIL/uL (4.5-6.0); RED CELL DISTRIBUTION WIDTH 25.2 % (11.5-15.0); WHITE BLOOD COUNT (AUTO) 15.7 K/uL (4.3-11.0)
[2024-05-15 07:40] LABS: CALCIUM, SERUM 8.2 mg/dL (8.5-10.1); CREATININE 1.2 mg/dL (0.6-1.3); MAGNESIUM 1.7 mg/dL (1.8-2.4); PHOSPHORUS 2.5 mg/dL (2.5-4.9); POTASSIUM 4.6 mmol/L (3.5-5.1)
[2024-05-15 08:00] VITALS: BP 116/78; TEMP 97.8; O2SAT 100
[2024-05-15 12:00] VITALS: BP 116/78; TEMP 97.8; O2SAT 100
[2024-05-15] MEDS: POTASSIUM CHLORIDE 20 MEQ TAB.PRT.SR PO ONE (13:47)
[2024-05-15] MEDS: MAGNESIUM OXIDE 400 MG TABLET PO ONE (13:47)
[2024-05-15 16:00] VITALS: BP 90/60; TEMP 98.2; O2SAT 100
[2024-05-15] MEDS: ENSURE ENLIVE 237 ML LIQUID (VANILLA) PO SCH (16:24)
[2024-05-16] VITALS: BP 90/60; TEMP 98.2; O2SAT 100
[2024-05-16 06:50] LABS: BASOPHILS # (AUTO) 0.1 K/uL (0.0-0.2); BASOPHILS % (AUTO) 0.8 % (0.0-2.0); EOSINOPHILS # (AUTO) 0.2 K/uL (0.0-0.7); EOSINOPHILS % (AUTO) 2.4 % (0.0-6.0); HEMATOCRIT 27 % (39-51); HEMOGLOBIN 8.1 g/dL (13.5-17.5); LYMPHOCYTES # (AUTO) 1.3 K/uL (0.8-4.8); MEAN CORPUSCULAR HEMOGLOBIN 25 PG (26.0-33.0); MEAN CORPUSCULAR HGB CONC 30 g/dl (31.0-36.0); MEAN CORPUSCULAR VOLUME 82 fL (80-96); MONOCYTES # (AUTO) 0.7 K/uL (0.1-1.30); MONOCYTES % (AUTO) 7.1 % (2.0-12.0); NEUTROPHILS # (AUTO) 7.6 K/uL (1.8-8.9); NEUTROPHILS % (AUTO) 76.7 % (43.0-81.0); PLATELET COUNT (AUTO) 122 K/uL (150-450); RED BLOOD CELL COUNT(AUTO) 3.23 MIL/uL (4.5-6.0); RED CELL DISTRIBUTION WIDTH 25.9 % (11.5-15.0); WHITE BLOOD COUNT (AUTO) 9.9 K/uL (4.3-11.0)
[2024-05-16 06:56] LABS: CREATININE 0.9 mg/dL (0.6-1.3); MAGNESIUM 1.6 mg/dL (1.8-2.4)
[2024-05-16 08:00] VITALS: BP 109/72; TEMP 98.1; O2SAT 100
[2024-05-16] MEDS: MAGNESIUM OXIDE 400 MG TABLET PO ONE (10:38)
[2024-05-16 16:00] VITALS: BP 127/93; TEMP 98; O2SAT 100
[2024-05-16] MEDS: BISACODYL SUPP (10 MG) 10 MG/SUPP.RECT SUPP.RECT RC ONE (18:17)
[2024-05-16 20:00] VITALS: BP 124/80; TEMP 97.9; O2SAT 100
[2024-05-16 20:17] LABS: FERRITIN 295 ng/mL (8-388); IRON, SERUM 43 ug/dl (50-175)
[2024-05-16] MEDS: SENNOSIDES 8.6 MG TABLET PO SCH (22:19)
[2024-05-17] VITALS: BP 122/87; TEMP 97.9; O2SAT 100
[2024-05-17 04:00] VITALS: BP 116/72; TEMP 97.7; O2SAT 100
[2024-05-17 08:00] VITALS: BP 123/84; TEMP 97.7; O2SAT 100
[2024-05-17] MEDS: DOCUSATE SODIUM 100 MG CAPSULE PO SCH (08:15)
[2024-05-17 08:16] VITALS: BP 123/84
[2024-05-17 08:27] LABS: BASOPHILS # (AUTO) 0.1 K/uL (0.0-0.2); EOSINOPHILS # (AUTO) 0.3 K/uL (0.0-0.7); EOSINOPHILS % (AUTO) 3.5 % (0.0-6.0); HEMATOCRIT 30 % (39-51); HEMOGLOBIN 9.2 g/dL (13.5-17.5); LYMPHOCYTES # (AUTO) 1.7 K/uL (0.8-4.8); LYMPHOCYTES % (AUTO) 20.6 % (20.0-44.0); MEAN CORPUSCULAR HEMOGLOBIN 25 PG (26.0-33.0); MEAN CORPUSCULAR HGB CONC 31 g/dl (31.0-36.0); MEAN CORPUSCULAR VOLUME 82 fL (80-96); MONOCYTES # (AUTO) 0.9 K/uL (0.1-1.30); MONOCYTES % (AUTO) 11.1 % (2.0-12.0); NEUTROPHILS # (AUTO) 5.2 K/uL (1.8-8.9); NEUTROPHILS % (AUTO) 63.8 % (43.0-81.0); PLATELET COUNT (AUTO) 161 K/uL (150-450); RED BLOOD CELL COUNT(AUTO) 3.65 MIL/uL (4.5-6.0); RED CELL DISTRIBUTION WIDTH 26.2 % (11.5-15.0); WHITE BLOOD COUNT (AUTO) 8.2 K/uL (4.3-11.0)
== END 2024-05-17 14:01 | DRG 871 ==
LOC: ER 21:16 → TELE1 05-13 01:43 → MEDSG1 05-15 08:51
DX: A41.9 Sepsis, unspecified organism (principal); G93.41 Metabolic encephalopathy; N17.0 Acute kidney failure with tubular necrosis; N39.0 Urinary tract infection, site not specified; F03.93 Unspecified dementia, unspecified severity, with mood disturbance; E87.20 Acidosis, unspecified; Z16.12 Extended spectrum beta lactamase (ESBL) resistance; D62 Acute posthemorrhagic anemia; E78.5 Hyperlipidemia, unspecified; F43.10 Post-traumatic stress disorder, unspecified; K59.00 Constipation, unspecified; Z79.82 Long term (current) use of aspirin; Z79.899 Other long term (current) drug therapy; Z79.83 Long term (current) use of bisphosphonates; B96.89 Other specified bacterial agents as the cause of diseases classified elsewhere; D63.8 Anemia in other chronic diseases classified elsewhere; I12.9 Hypertensive chronic kidney disease with stage 1 through stage 4 chronic kidney disease, or unspecified chronic kidney disease; N18.9 Chronic kidney disease, unspecified; M81.0 Age-related osteoporosis without current pathological fracture; E86.1 Hypovolemia; F39 Unspecified mood [affective] disorder; I25.2 Old myocardial infarction; D50.9 Iron deficiency anemia, unspecified; D69.6 Thrombocytopenia, unspecified; B96.20 Unspecified Escherichia coli [E. coli] as the cause of diseases classified elsewhere; M89.8X9 Other specified disorders of bone, unspecified site; F17.210 Nicotine dependence, cigarettes, uncomplicated; M62.3 Immobility syndrome (paraplegic)
CPT/HCPCS: 36415; 70450-TC; 71045-TC; 76770-TC; 80048-TC; 80076-TC; 81001; 82607-TC; 82728-TC; 83540-TC; 83605-TC; 83735-TC; 84100-TC; 84484-TC; 85025-TC; 85045-TC; 85730-TC; 87040-TC; 87081-TC; 87086-TC; 92526; 92611-TC; 94760-TC; 94799-TC; 97110-TC; 97112-TC; 97530-TC; A4223; G0378; J0692; J0696; J2060; J7030; J7050; J7060